=== PATIENT | male | born 1960 | race Caucasian/White ===

== ENCOUNTER 2018-06-12 16:07 | Emergency (ER) | payer OTHER ==
[~2018-06-12] VITALS: Ht 172.7 cm; Wt 81.6 kg
[2018-06-12 16:19] VITALS: BP 135/88
[2018-06-12] MEDS ORDERED: EPIPEN0.3 MG/0.1 IM (16:53)
--- NOTE | 2018-06-12 16:55 | ED GENERAL ADULT ---
History of Present Illness General Chief Complaint: Animal/Insect Bite Stated Complaint: INSECT BITE TO BACK OF NECK, NOW SWOLLEN Source: patient Exam Limitations: no limitations Vital Signs & Intake/Output Vital Signs & Intake/Output Vital Signs Date Time Temp Pulse Resp B/P B/P Pulse O2 O2 Flow FiO2 Mean Ox Delivery Rate 06/12 1619 98.1 80 18 135/88 98 Room Air Allergies Uncoded Allergies: Allergy Other SEASONAL,DSUT Med Allergies NONE Reconcile Medications Epinephrine (Epipen) 0.3 MG/0.3 ML AUTO.INJCT 1 INJ IM ONCE PRN anaphylaxis Triage Note: PT STATES THAT HE WAS STUNG ON THE BACK OF HIS NECK ABOUT 30 MINUTES AGO, APPLIED ICE BUT IT IS STILL BOTHERING HIM, AREA RED BUT PT NOTED TO BE HOLDING ICE PACK DIRECTLY ON HIS SKIN. DENIES HISTORY OF BEING ALLERGIC TO BEES. CALLED URGENT CARE AND THEY TOLD HIMM HE SHOULD COME TO ER Triage Nurses Notes Reviewed? yes Onset: Abrupt Duration: minute(s): Timing: single episode today HPI: 57-year-old male with a history of hypertension, hyperlipidemia, coronary artery disease (status post cardiac stenting) presenting with localized allergic reaction status post insect sting approximately 30-60 minutes prior to arrival. He reports that he was doing yard work when he felt an insect brush against the back of his neck. He went to swatted away and then felt it sting the back of his neck. He is unsure of the type of insect. He has no known allergies to any insects. He called an urgent care to see if he required medical evaluation, they referred him into the emergency department. He denies any lip/tongue swelling/paresthesias, difficulty swallowing, chest pain, shortness of breath, abdominal pain, nausea, vomiting. (Dawn Cary) Past History Travel History Traveled to [place] past 21 day No Medical History Any Pertinent Medical History? see below for history Neurological: NONE EENT: NONE Cardiovascular: CAD, hypertension, hyperlipidemia, STENT Respiratory: NONE Gastrointestinal: NONE Hepatic: NONE Renal: NONE Musculoskeletal: NONE Psychiatric: NONE Endocrine: NONE Blood Disorders: NONE Cancer(s): NONE GRAIN HANDLER/Reproductive: NONE Surgical History Surgical History: non-contributory Psychosocial History What is your primary language Malay Tobacco Use: Never used ETOH Use: denies use Illicit Drug Use: marijuana Family History Hx Contributory? No (Dawn Cary) Review of Systems Review of Systems Constitutional: Reports: no symptoms. EENTM: Reports: no symptoms. Respiratory: Reports: no symptoms. Cardiovascular: Reports: no symptoms. GI: Reports: no symptoms. Genitourinary: Reports: no symptoms. Musculoskeletal: Reports: no symptoms. Skin: Reports: see HPI. Neurological/Psychological: Reports: no symptoms. Hematologic/Endocrine: Reports: no symptoms. Immunologic/Allergic: Reports: no symptoms. All Other Systems: Reviewed and Negative (Dawn Cary) Physical Exam Physical Exam General Appearance: well developed/nourished, no apparent distress, alert, awake Comments: Gen.: Well-nourished, well-developed, no acute distress. Head: Normocephalic, atraumatic. Eyes: Normal inspection bilaterally Ears: Normal inspection bilaterally Nose: Normal inspection Throat: No oral pharyngeal edema, no angioedema Neck: Normal inspection, localized erythema to the posterior neck Lungs: clear to auscultation bilaterally, normnal breath sounds Heart: regular rate and rhythm Abdomen: soft and non-tender Extremities: Normal inspection Neurologic: alert and oriented x3, steady gait Skin: warm and dry Psychiatric: Normal mood and affect, no apparent delusions or hallucinations, behavior appropriate Core Measures ACS in differential dx? No CVA/TIA Diagnosis: No Sepsis Present: No Sepsis Focused Exam Completed? No (Dawn Cary) Progress Differential Diagnoses I considered the following diagnoses in my evaluation of the patient: [Insect bite/sting versus localized allergic reaction, will concern for anaphylaxis] Plan of Care: Patient instructed to use Benadryl and topical hydrocortisone. He was offered a prescription for 2.5% topical hydrocortisone, but he states he already has some at home that he will use. He was given an EpiPen in the event of anaphylaxis. Counseled on supportive care and strict return precautions. Initial ED EKG: none (Dawn Cary) Departure Departure Disposition: HOME OR SELF CARE Condition: Stable Clinical Impression Primary Impression: Insect sting Secondary Impressions: Allergic reaction Referrals: Brian Antoine MD (PCP/Family) Additional Instructions: Apply topical hydrocortisone to the affected area. Use either Benadryl or Claritin to help with itching and swelling. Keep your EpiPen on you in the event of anaphylaxis. Follow-up with your primary care provider for reevaluation. Return to the emergency department for any new or worsening symptoms. Departure Forms: Customer Survey General Discharge Information Prescriptions: Current Visit Scripts Epinephrine (Epipen) 1 INJ IM ONCE PRN anaphylaxis #1 INJ (Dawn Cary) PA/[employer]OB[employer]SE END FINDER Co-Sign Statement Statement: ED Attending supervision documentation- [] I saw and evaluated the patient. I have also reviewed all the pertinent lab results and diagnostic results. I agree with the findings and the plan of care as documented in the PA's/BOBBIN LOOSE END FINDER's documentation. [X] I have reviewed the ED Record and agree with the PA's/BOBBIN LOOSE END FINDER's documentation. [] Additions or exceptions (if any) to the PAs/BOBBIN LOOSE END FINDER's note and plan are summarized below: [] (Dennise ONEILL,Phillip Brito) Critical Care Note Critical Care Note Critical Care Time: non-applicable (Dawn Cary)
== END 2018-06-12 16:53 ==
LOC: ERH 16:07
DX: S10.96XA Insect bite of unspecified part of neck, initial encounter (principal); Y92.017 Garden or yard in single-family (private) house as the place of occurrence of the external cause; Y93.H2 Activity, gardening and landscaping